=== PATIENT | female | born 1990 | race Caucasian/White ===

== ENCOUNTER 2020-09-21 20:17 | Emergency (ER) | payer BC, OTHER ==
[2020-09-21 20:47] VITALS: BP 107/73; PULSE 69; TEMP 98.6; BMI 28.5
[2020-09-21] MEDS ORDERED: SODIUM CHLORIDE 1,000 ML IV STA (21:10)
[2020-09-21] MEDS ORDERED: ACETAMINOPHEN 500 MG TABLET (FP) PO ONE ×2 (21:11→21:38)
[2020-09-21] MEDS ORDERED: ACETAMINOPHEN 325 MG TABLET (FP) ONE (21:41)
[2020-09-21 21:44] LABS: BASO % 0.4 % (0-2.0); EOS % 1.3 % (0-4.5); HEMOGLOBIN 11.5 GM/dL (10.7-15.3); LYMPH % 10.7 % (8-40); MCH 22.9 pg (25.7-33.7); MEAN CELL VOLUME 71.5 fl (80-96); MEAN PLT VOLUME 10.1 fl (7.5-11.1); MONO % 5.1 % (3.8-10.2); NEUT % 82.5 % (42.8-82.8); RBC 5.03 M/mm3 (3.60-5.2); RDW 17.7 % (11.6-15.6); WHITE BLOOD COUNT 12.4 K/mm3 (4.0-10.0)
[2020-09-21 22:08] LABS: CHLORIDE 104 mmol/L (98-107); POTASSIUM 4.4 mmol/L (3.5-5.1); SODIUM 134 mmol/L (136-145)
[2020-09-21 22:10] LABS: ANION GAP 5 MMOL/L (8-16); BLOOD UREA NITROGEN 4.2 mg/dL (7-18); CALCIUM 9.4 mg/dL (8.5-10.1); CO2 25 mmol/L (21-32); GLUCOSE,RANDOM 78 mg/dL (74-106)
[2020-09-21 22:13] LABS: CREATININE 0.7 mg/dL (0.55-1.3); SGOT/AST 39 U/L (15-37); SGPT/ALT 21 U/L (13-61)
[2020-09-21 22:15] LABS: BILIRUBIN,TOTAL 0.4 mg/dL (0.2-1); PLATELET ESTIMATE DECREASED
[2020-09-21 22:16] LABS: ALK PHOS 53 U/L (45-117)
[2020-09-21 22:21] LABS: INR 1.02 (0.83-1.09); PROTHROMBIN TIME (PATIENT) 12.3 SEC (9.7-13.0)
[2020-09-21 22:24] LABS: ACTIVATED PTT 28.8 SECONDS (25.2-36.5)
[2020-09-21] MEDS ORDERED: IBUPROFEN 400 MG TABLET (FP) PO ONE (23:51)
[2020-09-22] MEDS ORDERED: IBUPROFEN 400 MG TABLET (FP) PO ONE (00:42)
== END 2020-09-22 00:45 | disposition home or self-care (01) ==
LOC: JER 20:17
PROC: 3E0337Z Introduction of Electrolytic and Water Balance Substance into Peripheral Vein, Percutaneous Approach (ICD-10-PCS; principal; 2020-09-21)
DX: O03.9 Complete or unspecified spontaneous abortion without complication (principal); R55 Syncope and collapse; Z3A.00 Weeks of gestation of pregnancy not specified
CPT/HCPCS: 36415; 76817-TC; 80053; 82550; 84484; 84702; 85025; 85610; 85730; 86850; 86900; 86901; 93005; 93010; 99285-25